=== PATIENT | female | born 1960 | race Caucasian/White ===

== ENCOUNTER → 2023-07-20 07:38 | Outpatient (REF) | payer BC, SELFPAY | LOC: RAD 07:38 | PROVIDERS: ATTENDING PHYSICIAN Obstetrics & Gynecology; FAMILY PHYSICIAN Physician Assistant Medical | DX: R10.31 Right lower quadrant pain (principal) | CPT/HCPCS: 76830; 76856 ==

== ENCOUNTER 2024-09-07 10:47 | Inpatient (IN) | payer BC, SELFPAY ==
[2024-09-07 05:46] VITALS: BP 139/83
[2024-09-07 06:05] LABS: % Basophils 0.7 % (0-2); % Eosinophils 2.9 % (0-6); % Immature Granulocytes 0.2 % (0-0.5); % Lymphocytes 31.9 % (20.5-51.1); % Monocytes 13.7 % (1.7-9.3); % Neutrophils 50.6 % (42.2-75.2); Absolute Eosinophils 0.1 10^3/uL (0-0.7); Absolute Lymphocytes 1.4 10^3/uL (1.2-3.4); Absolute Monocytes 0.6 10^3/uL (0.1-0.6); Absolute Neutrophils 2.3 10^3/uL (1.4-6.5); Hematocrit 33.8 % (37.0-47.0); Hemoglobin 11.5 g/dL (12.0-16.0); Mean Corpuscular Hgb 31.2 pg (27.0-31.0); Mean Corpuscular Volume 91.6 fL (81.0-99.0); Mean Platelet Volume 8.8 fL (7.4-10.4); Nucleated Red Blood Cells % 0 %; Platelet Count 177 10^3/uL (130-400); Red Blood Cell Count 3.69 10^6/uL (4.20-5.40); White Blood Cell Count 4.5 10^3/uL (4.8-10.8)
[2024-09-07 06:27] LABS: ALT (SGPT) 51 U/L (0-35); AST (SGOT) 41 U/L (14-36); Albumin 4.1 g/dl (3.5-5.0); Alkaline Phosphatase 47 U/L (38-126); Blood Urea Nitrogen 27 mg/dl (7-17); Calcium 8.7 mg/dl (8.4-10.2); Carbon Dioxide 19 mmol/L (22-30); Chloride 106 mmol/L (98-107); Glucose 96 mg/dl (70-99); Lipase 249 U/L (23-300); Potassium 4.2 mmol/L (3.5-5.1); Sodium 136 mmol/L (135-145); Total Bilirubin 0.5 mg/dl (0.2-1.3); Total Protein 6.9 g/dl (6.3-8.2); eGFR 18.17
--- NOTE | 2024-09-07 07:44 | ED.GENMED ---
History of Present Illness
General
Chief Complaint: Flank Pain
Source: patient
Exam Limitations: none
Time Seen by Provider: 09/07/24 07:23
History of Present Illness
History of Present Illness:
64yoF with a history of hypertension, hyperlipidemia, and remote history of breast cancer in remission presenting with her for evaluation of flank pain. Patient has been having some mild pain in her right flank over the past week. She woke
up this morning at 4 AM with severe pain. Pain is located in the right flank and radiates to the right lower quadrant. She also reports nausea but denies any vomiting. She has not urinated since 10 PM last night and does not currently feel the
urge to urinate. She was urinating well yesterday without any dysuria or hematuria. Patient is otherwise asymptomatic and denies any fevers. Patient had outpatient blood work in June 2024 and creatinine was 0.88 at that time.
Phy Exam
General Physical Exam
General Presentation: well appearing and no apparent distress
General Skin: warm and dry
General Habitus: normal
General Mental: alert
ENT Exam
ENT Exam: normocephalic
Pulmonary Exam
Pulmonary Exam: lungs clear, no respiratory distress, no rales, no crackles, no rhonchi and no wheezing
Gastrointestinal Exam
Gastrointestinal Exam: non tender, soft, non distended and no cva tenderness
Neurological Exam
Neurological Exam: alert
Afia Coma Scale
Eye Opening: Spontaneous
Verbal Response: Oriented
Motor Response: Obeys Commands
GCS Total Score: 15
Skin Exam
Skin Exam: normal color and warm/dry
Psychiatric Exam
Psychiatric Exam: normal mood/affect
Course
Orders/Labs/Results
Orders:
Orders
09/07/24 05:55
Complete Blood Count/With Diff Urgent
Comprehensive Metabolic Panel Urgent
Lipase Urgent
09/07/24 07:43
CT Abd/pel Without Iv Or Oral Urgent
Comment:
Reason For Exam: R flank pain, RLQ pain
Bladder Scan- Treatment ONCE
0.9% Sodium Chloride 1000 ml [Nss] 1,000 ml IV BOLUS
HYDROmorphone [Dilaudid] 0.5 mg IV NOW STA
09/07/24 08:03
Ondansetron Injectable [Zofran] 4 mg IV NOW STA
09/07/24 09:55
Urinalysis Reflex To Culture Urgent
Date Specimen was Collected: 09/07/24
Time Specimen was Collected: 07:44
Urine Microscopic Reflex Cult Urgent
Urine Culture Urgent
YOGI Source: U
Specimen Description:
Date Specimen was Collected: 09/07/24
Time Specimen was Collected: 07:44
09/07/24 10:05
0.9% Sodium Chloride 1000 ml [Nss] 1,000 ml IV BOLUS
09/07/24 10:31
Blood Culture Q30M
YOGI Source: Blood/Venous
Specimen Description:
09/07/24 10:35
CefTRIAXone [Rocephin] 2,000 mg IV NOW STA
09/07/24 10:37
Admit/Transfer Patient As Directed
Co-Sign Provider:
Level of Care: Inpatient admission
Assign to:: Telemetry
Physician / Group: Bridger/hospitalist
Diagnosis: MU, R flank pain
Reason for Telemetry: Other
Other Reason for Telemetry: alcohol withdrawal protocol
Date to Stop Telemetry: 09/09/24
Time to Stop Telemetry: 11:00
Reason for Hospitalization: MU, R flank pain
Expected length of stay greater than two midnights?: Yes
ELOS- Estimated Length of Stay in days: 3
I certify the patient meets the requirements for IP care: Yes
Code Status As Directed
Resuscitation Status: Full Code
09/07/24 11:12
Blood Culture Q30M
YOGI Source: Blood/Venous
Specimen Description:
09/09/24 11:00
DC Protocol for Telemetry ONCE
Abnormal Lab Results
09/07/24 09/07/24
05:55 09:55
WBC 4.5 L 10^3/uL
(4.8-10.8)
RBC 3.69 L 10^6/uL
(4.20-5.40)
Hgb 11.5 L g/dL
(12.0-16.0)
Hct 33.8 L %
(37.0-47.0)
MCH 31.2 H pg
(27.0-31.0)
Monocytes % 13.7 H %
(1.7-9.3)
Carbon Dioxide 19 L mmol/L
(22-30)
BUN 27 H mg/dl
(7-17)
Creatinine 2.8 H mg/dL
(0.6-1.0)
AST 41 H U/L
(14-36)
ALT 51 H U/L
(0-35)
Ur Occult Blood Reflex 2+ A
(Negative)
Leukocyte Esterase Rfl 3+ A
(Negative)
Urine RBC 3-6 A /HPF
(0-2)
Urine WBC (Reflex) 16-20 A /HPF
(0-5)
Urine Bacteria (Reflex) Moderate A
(Negative)
Urine Albumin (Reflex) 3+ A
(Neg - Trace)
09/07/24 05:55
09/07/24 05:55
Vital Signs
Initial and Last Documented VS:
Initial Vital Signs
Temp Pulse Resp BP Pulse Ox
98.5 F 78 18 139/83 99
09/07/24 05:46 09/07/24 05:46 09/07/24 05:46 09/07/24 05:46 09/07/24 05:46
Last Documented Vital Signs
Temp Pulse Resp BP Pulse Ox
98.5 F 77 18 132/71 96
09/07/24 05:46 09/07/24 11:17 09/07/24 11:17 09/07/24 11:17 09/07/24 11:17
MDM/Problems Addressed
Differential Diagnosis Includes:
64yoF here with R flank pain. Mild pain x 1 week, now worsening since 4am. Has not urinated since last night. No f/c. VSS. She is well-appearing in no acute distress. There is no reproducible abdominal or CVA tenderness on exam. Differential
diagnosis includes but is not limited to: Kidney stone, UTI, pyelonephritis, musculoskeletal, appendicitis
Initial ED plan: Labs obtained in triage. Creatinine 2.8. She has no history of CKD and was able to show me her recent outpatient lab work from June and creatinine was 0.88 at that time. Will check bladder scan, UA, and CT abdomen without
contrast. IV Dilaudid, Zofran, and fluid bolus for symptoms.
*Critical Care Note
Total Time (30-74mins, 75-104mins- exclusive of procedures): Not Applicable
Update Note
Update Note:
Bladder scan 100cc. CT does not show any ureterolithiasis or hydronephrosis. Appendix is normal. UA with 3+ leukocytes suggesting infection. IV Rocephin ordered as well as second fluid bolus. Patient admitted for further management.
ED Attending Note
-
Portions of this chart may have been created with voice recognition software.� Occasional wrong word or��sound alike� substitutions may have occurred due to the inherent limitations of voice recognition software.
Discharge Plan
Departure
Patient Disposition: Admit
Date of Disposition: 09/07/24
Time of Disposition: 10:06
Presentation/result/management discussed w/ accepting MD/DO: Hospitalist
Discharge Problem:
Acute kidney injury, Right flank pain
Interventions
Interventions:
*Risk Screen - Suicide Last Done: 09/07/24 05:46
*General Assessment Last Done: 09/07/24 05:46
*Neglect/Abuse Screening Last Done: 09/07/24 05:46
SP-Jzldgu-Bguhqemeru Assessment Last Done: 09/07/24 08:06
ED-Female Genitourinary Assessment Last Done: 09/07/24 08:06
[2024-09-07] MEDS: DILAUDID 0.5 MG IV (07:49)
[2024-09-07] MEDS: NSS 1000 IV ×3 (07:58→17:11)
[2024-09-07] MEDS: ZOFRAN 4 MG IV (08:05)
[2024-09-07 08:07] VITALS: BMI 28.4
[2024-09-07 10:19] LABS: Urine Albumin 3+ (Neg - Trace); Urine Bilirubin Negative (Negative); Urine Character Slightly Cloudy (Clear); Urine Color Yellow; Urine Glucose Negative (Negative); Urine Ketone Negative (Negative); Urine Leukocyte 3+ (Negative); Urine Nitrite Negative (Negative); Urine Occult Blood 2+ (Negative); Urine Urobilinogen Negative (Neg - 1+)
--- NOTE | 2024-09-07 10:20 | HPS.HSE ---
Family Physician
-
Family Physician: Roopa Anand PA-C
Chief Complaint
-
R flank pain
History of Present Illness
HPI: 64 yo F with PMH hypertension, hyperlipidemia, and remote history of breast cancer in remission; p/w R flank pain that started over the past week. Right flank radiates to the right lower quadrant.
She also reports nausea but denies to vomiting. Also denies to fever.
Patient had outpatient blood work in June 2024 and creatinine was 0.88 at that time.
Medical History
Past Medical History
Past Medical History: Reports Other
Additional Past Medical History:
hypertension,
hyperlipidemia,
remote history of breast cancer in remission
Past Surgical History: Reports Cholecystectomy
Additional Past Surgical History:
mastectomy
Social History
Tobacco: Non-smoker
Alcohol: Daily (3-4 glasses of wine )
Personal:
Living: With Family
Family History
Family History: Not pertinent
Allergies / Home Medications
Allergies reflects when Allergies were last updated in [facility].
Home Medications with original date entered in [facility]
Allergy/Medication List:
Medications on admission are unable to be verified or confirmed at this time.
Review of Systems
-
: Reports See HPI, Flank Pain (R ) and Other (decreased urine outpt ); Denies Dysuria or Frequency
Physical Exam
Vital Signs
Vital Signs
Temp Pulse Resp BP Pulse Ox
36.9 C 78 18 139/83 99
09/07/24 05:46 09/07/24 05:46 09/07/24 05:46 09/07/24 05:46 09/07/24 05:46
Physical Exam
General: Well Developed, Well Nourished, No Apparent Distress, Comfortable and Conversant
HEENT: NormoCephalic, Moist mucous membranes and Atraumatic
Respiratory: Clear and Non Labored Respirations; No Accessory Resp Muscle Use
Cardiac: S1/S2 and Regular Rhythm; No Murmur or Rub
GI: Soft, Non Tender, Non Distended and Normal Bowel Sounds; No Organomegaly
Rectal: Deferred by Provider
Musculoskeletal: No Clubbing, No Cyanosis and No Edema
Skin: No Rash
Neuro: Awake and Alert
Psych: Calm and Intact Judgment/Insight
Laboratory Results
-
09/07/24 05:55
09/07/24 05:55
Laboratory Results
Total Bilirubin 0.5 mg/dl (0.2-1.3) 09/07/24 05:55
AST 41 U/L (14-36) H 09/07/24 05:55
ALT 51 U/L (0-35) H 09/07/24 05:55
Alkaline Phosphatase 47 U/L (38-126) 09/07/24 05:55
Lipase 249 U/L (23-300) 09/07/24 05:55
Data Reviewed
-
CT Scan: Report Reviewed by me
Lab Data: Labs Reviewed by me
Impression/Plan
-
HPI: 64 yo F with PMH hypertension, hyperlipidemia, and remote history of breast cancer in remission; p/w R flank pain that started over the past week. Right flank radiates to the right lower quadrant.
She also reports nausea but denies to vomiting. Also denies to fever.
Patient had outpatient blood work in June 2024 and creatinine was 0.88 at that time.
A/P:
# R flank pain, ?R renal colic with ?passed stone
#?R pyelo
Check urine Cx, blood Cx
CT AP: There is perinephric stranding of both kidneys, which is nonspecific. Subtle bilateral nephroliths, No evidence for ureteral calculus bilaterally.
cover with empiric Abx ceftriaxone for now until culture results are available
# MU
SCr 2.8 from baseline 0.8
s/p 2L NSS bolus in ED, cont IVF support
Monitor SCr
# Mild transaminitis, suspect reactive
trend LFT
# hypertension
Hold [employer] losartan
Med recc pending
# hyperlipidemia
# Daily alcohol drinking, 3-4 glasses of wine
cover with MSAS for withdrawal
# remote history of breast cancer in remission
DVT ppx: HSQ
FC
[2024-09-07 10:35] LABS: Urine Squamous Cell >30 /LPF (Few)
[2024-09-07 10:36] VITALS: BP 132/72
[2024-09-07 10:36] LABS: Urine Bacteria Moderate (Negative); Urine White Cell 16-20 /HPF (0-5)
[2024-09-07 11:00] VITALS: BP 132/71
[2024-09-07] MEDS: ROCEPHIN 2000 MG IV (11:14)
[2024-09-07 11:17] VITALS: BP 132/71
--- NOTE | 2024-09-07 13:22 | CM ---
Met with patient admitted from home with MU, flank pain. She was driving, working prior to admit. Lives with spouse in 2 level home with 1 step in. 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 Up 13 steps to full bath and bedrooms. No DME, SNF. Remote VNA after
breast cancer surgery. No financial concerns.
PCP Roopa Anand PA-C
Rx: [facility].
PLAN: home no needs.
[2024-09-07 20:25] VITALS: BP 153/96
--- NOTE | 2024-09-07 20:25 | PTCARENOTE ---
Rec'd to 4E alert & oriented x3. Able to walk from stretcher to bed w/o any difficulty. States minimal Lt lower back pain at this time.
[2024-09-07 20:30] VITALS: BMI 28.6
[2024-09-07 23:00] VITALS: BP 153/78
[2024-09-07] MEDS: DILAUDID 0.25 MG IV (23:00)
[2024-09-07] MEDS: FLUSH (NSS) 2 FLUSH IV (23:01)
[2024-09-07] MEDS: HEPARIN 5000 UNITS SC (23:36)
[2024-09-07] MEDS: THIAMINE INJECTION 200 MG IV (23:38)
[2024-09-07] MEDS: ATARAX 10 MG PO (23:40)
[2024-09-08 03:00] VITALS: BP 107/59
[2024-09-08 07:50] VITALS: BP 134/83
[2024-09-08 08:24] LABS: Hematocrit 30.9 % (37.0-47.0); Hemoglobin 10.5 g/dL (12.0-16.0); Mean Corpuscular Hgb 31.3 pg (27.0-31.0); Mean Corpuscular Volume 92.2 fL (81.0-99.0); Mean Platelet Volume 9.2 fL (7.4-10.4); Platelet Count 150 10^3/uL (130-400); Red Blood Cell Count 3.35 10^6/uL (4.20-5.40); Red Cell Dist. Width 13.1 % (11.5-14.5)
[2024-09-08 08:44] LABS: ALT (SGPT) 30 U/L (0-35); AST (SGOT) 26 U/L (14-36); Albumin 3.5 g/dl (3.5-5.0); Alkaline Phosphatase 57 U/L (38-126); Blood Urea Nitrogen 30 mg/dl (7-17); Calcium 7.9 mg/dl (8.4-10.2); Carbon Dioxide 17 mmol/L (22-30); Chloride 113 mmol/L (98-107); Direct Bilirubin 0.2 mg/dl (0.0-0.4); Estimated Creatinine Clearance 18 ml/min; Glucose 94 mg/dl (70-99); Magnesium 1.1 mg/dl (1.6-2.3); Potassium 4.7 mmol/L (3.5-5.1); Sodium 139 mmol/L (135-145); Total Bilirubin 0.6 mg/dl (0.2-1.3); eGFR 13.01
[2024-09-08] MEDS: NSS 1000 IV (09:19)
[2024-09-08] MEDS: PROTONIX 40 MG PO (09:22)
[2024-09-08] MEDS: CRESTOR 5 MG PO (09:22)
[2024-09-08] MEDS: HEPARIN 5000 UNITS SC ×2 (09:22→21:54)
[2024-09-08] MEDS: THIAMINE INJECTION 200 MG IV ×2 (09:23→21:56)
[2024-09-08] MEDS: FLUSH (NSS) 1 FLUSH IV ×2 (09:27→12:46)
[2024-09-08] MEDS: STERILE WATER FOR INJECTION 10 ML IV (09:27)
[2024-09-08] MEDS: ROCEPHIN 1000 MG IV (09:27)
[2024-09-08 11:35] VITALS: BP 147/91
--- NOTE | 2024-09-08 11:43 | W.PN.HOSP.TC ---
Today's Communication/Plan
-
see A/P
Assessment / Plan
Assessment / Plan
HPI: 64 yo F with PMH hypertension, hyperlipidemia, and remote history of breast cancer in remission; p/w R flank pain that started over the past week. Right flank radiates to the right lower quadrant.
She also reports nausea but denies to vomiting. Also denies to fever.
Patient had outpatient blood work in June 2024 and creatinine was 0.88 at that time.
A/P:
# R flank pain, ?R renal colic with ?passed stone, R flank pain has improved
Admission CT AP: There is perinephric stranding of both kidneys, which is nonspecific. Subtle bilateral nephroliths, No evidence for ureteral calculus bilaterally.
urine Cx grew Mixed wayne present, Probable contamination
Follow blood Cx, so far negative
Cont empiric Abx ceftriaxone for now
# MU
SCr 2.8 on admission, today at 3.7; baseline SCr 0.8
s/p 2L NSS bolus in ED, cont IVF support
Monitor SCr,
check FENA, urine eosinophil
Monitor I/O
Renal CS
# Mild transaminitis, reactive and resolved
# hypertension
Hold LICENSED [employer]ISER losartan
Cover with IV hydralazine PRN
# hyperlipidemia
# Daily alcohol drinking, 3-4 glasses of wine
cover with MSAS for withdrawal
# remote history of breast cancer in remission
# Hypomagnesemia
Mag level 1.1 today, replete IV
DVT ppx: HSQ
FC
DW RN
DW at bedside
Anticipated Discharge: 24 - 48 hours
Subjective/Interval History
-
Date of Service: September 08, 2024
Objective Data
-
Labs:
Laboratory Results
09/08/24
07:46
WBC 3.0 L
Hgb 10.5 L
Hct 30.9 L
Plt Count 150
Sodium 139
Potassium 4.7
Chloride 113 H
Carbon Dioxide 17 L
BUN 30 H
Creatinine 3.7 H
Glucose 94
Calcium 7.9 L
Total Bilirubin 0.6
AST 26
ALT 30
Alkaline Phosphatase 57
Vital Signs:
Vital Signs
Temp Pulse Resp BP Pulse Ox
37.2 C 77 16 134/83 96
09/08/24 07:50 09/08/24 07:50 09/08/24 07:50 09/08/24 07:50 09/08/24 09:18
Review of Systems
-
All other systems: Reviewed and negative
Constitutional: Reports No Symptoms
Genitourinary: Reports Flank Pain (R flank pain improved ); Denies Dysuria, Frequency, Incontinence, Difficulty Voiding or Urgency
Physical Exam
-
General: Well Developed, Well Nourished, No Apparent Distress, Comfortable and Conversant; Negative Respiratory Distress
HEENT: Normocephalic, Atraumatic, Nose Appears Normal and Ears Appear Normal; Negative Oxygen
Respiratory: Clear to Auscultation and Non Labored Respirations; Negative Accessory Resp Muscle Use
Cardiac: Regular Rhythm and S1/S2
GI: Soft, Nontender, Nondistended and Normal Bowel Sounds
Musculoskeletal: Negative Edema, Right Lower Extrem or Edema, Left Lower Extrem
Skin: Warm and Dry
Neuro: Awake, Alert, Oriented, AO x 3 and Nonfocal/Grossly Intact
Psych: Calm and Intact Judgement/Insight
Data Reviewed
-
CT Scan: Report Reviewed by me
Labs: Labs Reviewed by me, Discussed with Patient and Discussed with Family
--- NOTE | 2024-09-08 12:34 | W.CON.NEPH ---
Consultation
-
Date/Time Consultation Requested: 09/08/2024 11:00 AM
Date/Time Consultation Performed: 09/08/2024 12:30 PM
Requesting Provider: Dr. Sparks
Performing Provider: Dr. Fragoso
Reason for Consultation: Acute kidney injury
Medical History
-
Chief Complaint: Acute kidney injury
History of Present Illness:
The patient is a 64-year-old female with a past medical history of dyslipidemia maintained on Zetia and Crestor, hypertension maintained on losartan, myrbetriq for chronic interstitial cystitis, and PPI for GERD. She has a history of breast cancer
but has remained in remission. She presented with right flank pain that started over the past week and radiates to the right lower quadrant she had reported some associated nausea but no vomiting and denied fevers. On presentation to the hospital
she was in acute renal failure with a creatinine off her baseline of 0.88 in June 2024 up to 3.7 and were consulted for MU. CAT scan imaging on admission did not reveal hydronephrosis but did note bilateral perinephric stranding.
Past Medical History
Hypertension,
Hyperlipidemia,
remote history of breast cancer in remission
GERD
Mastectomy Bilateral
Chronic interstitial cystitis
Cholecystectomy
Social History
Tobacco: Non-Smoker
Alcohol: Daily
Personal:
Family History
no ckd
Allergies / Home Medications
Allergy/AdvReac Type Severity Reaction Status Date / Time
docetaxel [From Taxotere] Allergy Anaphylaxis Verified 09/07/24 05:46
�Medication �Instructions �Recorded �Confirmed �Type
azelastine 137 mcg (0.1 %) nasal 1 spray intranasal DAILY Allergies 09/07/24 09/07/24 History
spray
cetirizine 10 mg tablet (Zyrtec) 10 mg PO DAILY Allergies 09/07/24 09/07/24 History
ezetimibe 10 mg tablet (Zetia) 10 mg PO DAILY High Cholesterol 09/07/24 09/07/24 History
hydroxyzine HCl 10 mg tablet 10 mg PO HS Allergies 09/07/24 09/07/24 History
losartan 100 mg tablet 100 mg PO DAILY Blood Pressure 09/07/24 09/07/24 History
mirabegron 50 mg tablet,extended 50 mg PO DAILY Urinary Issue 09/07/24 09/07/24 History
release 24 hr
mirabegron 50 mg tablet,extended 50 mg PO DAILY Urinary Issue 09/07/24 09/07/24 History
release 24 hr (Myrbetriq)
omeprazole 20 mg capsule,delayed 20 mg PO DAILY Gastrointestinal 09/07/24 09/07/24 History
release Issue
rosuvastatin 40 mg tablet 40 mg PO DAILY High Cholesterol 09/07/24 09/07/24 History
sumatriptan succinate 100 mg tablet 100 mg PO BID Neurological 09/07/24 09/07/24 History
Condition
Review of Systems
-
: Flank Pain (Right flank pain radiation to groin, decreased urine output on presentation to emergency room last evening (now improved))
Physical Exam
Vital Signs
Vital Signs
Temp Pulse Resp BP Pulse Ox
97.8 F 77 16 147/91 96
09/08/24 11:35 09/08/24 11:35 09/08/24 11:35 09/08/24 11:35 09/08/24 11:35
Lab Results
09/08/24 07:46
09/08/24 07:46
WBC 3.0 10^3/uL (4.8-10.8) L 09/08/24 07:46
RBC 3.35 10^6/uL (4.20-5.40) L 09/08/24 07:46
Hgb 10.5 g/dL (12.0-16.0) L 09/08/24 07:46
Hct 30.9 % (37.0-47.0) L 09/08/24 07:46
Plt Count 150 10^3/uL (130-400) 09/08/24 07:46
Sodium 139 mmol/L (135-145) 09/08/24 07:46
Potassium 4.7 mmol/L (3.5-5.1) 09/08/24 07:46
Chloride 113 mmol/L (98-107) H 09/08/24 07:46
Carbon Dioxide 17 mmol/L (22-30) L 09/08/24 07:46
BUN 30 mg/dl (7-17) H 09/08/24 07:46
Creatinine 3.7 mg/dL (0.6-1.0) H 09/08/24 07:46
eGFR 13.01 09/08/24 07:46
Glucose 94 mg/dl (70-99) 09/08/24 07:46
Calcium 7.9 mg/dl (8.4-10.2) L 09/08/24 07:46
Albumin 3.5 g/dl (3.5-5.0) 09/08/24 07:46
Physical Exam
General: AOx3, Nontoxic , NAD
HEENT: PERRL, EOMI, Anicteric, Conjunctivae Clear, Ear/Nose Intact, Hearing Normal, Oropharynx Clear/Moist, Dentition Intact, Facial Symmetry, Neck Supple, Neck: Trachea Midline, No JVD and No Thyromegaly, no Bruits
Respiratory: Clear to auscultation bilaterally with normal lung exersion
Cardiac: S1/S2 and Regular Rate/Rhythm
Breast: Deferred by me
Abdomen: Soft, Nontender, Nondistended, Normal Bowel Sounds and No Hepatosplenomegaly
Rectal: Deferred by Provider
Genito-urinary: Right lower back tenderness with percussion
Extremities: No Clubbing, No Cyanosis and No Edema
Skin: No Rash or open lesions
Neuro: Nonfocal/Grossly Intact, CN II-XII (Intact) and Strength (Musculoskeletal exam 5 out of 5 both upper and lower extremities)
Hematologic/Lymphatic: No Cervical Lymphadenopathy, No Submandibular Lymphadenopathy and No Supraclavicular Lymphadenopathy
Psych: Mood/afflect pleasant, Insight/judgement good and Appropriate
Vascular: plus 2 pedal and radial pulses
Data Reviewed
-
CT Scan: Report Reviewed by me (No evidence of hydronephrosis but notable for nonspecific perinephric stranding of kidneys)
Labs: Labs Reviewed by me (BMP CBC urinalysis)
Old Records: Reviewed (Reviewed outpatient lab work creatinine 0.88 from June 2024)
Assessment/Plan
-
Impression:
MU (2 plus blood and 3 plus albuminuria)
Metabolic acidosis (non gapped)
Right Flank pain
History of breast cancer
Hypertension
Hyperlipidemia
Anemia
History of chronic interstitial cystitis (that manifests as right flank pain)
Plan:
MU:
-holding ARB (hemodynamically stable)
- CT scan noted bilateral perinephric stranding but no evidence of obstructive uropathy
- maintain IVFs for now
- Empirically covered with antibiotics for possible underlying UTI and/or pyelonpephritis although there is now leukocytosis or fevers documented
- Check urine protein to creatinine ratio and serological workup given persistent proteinuria and hematuria
- There exist the possibility that she passed a stone but I am unsure why the creatinine elevated or worsenend today if that was the etiology of her acute kidney injury
- She is now urinating well please collect accurate I's and O's
[2024-09-08] MEDS: MAGNESIUM SULFATE 100 IV (12:44)
[2024-09-08 14:49] LABS: Creatine Phosphokinase 72 U/L (30-135)
[2024-09-08 15:10] LABS: Body Fluid for Eosinophils No Eosinophils seen
[2024-09-08 15:26] LABS: Urine Sodium 54 mmol/L (30-90)
[2024-09-08 15:39] LABS: Complement C3 99 mg/dl (88-165)
[2024-09-08 15:50] VITALS: BP 128/83
[2024-09-08 16:04] LABS: Hepatitis C Antibody Negative (Negative)
--- NOTE | 2024-09-08 17:14 | PTCARENOTE ---
Pt AAO x3, DELAROSA well, OOB in room/to BR; fifi well. VSS. On room air- pulse ox 95%, no SOB noted. Abd soft, fifi PO well. Voiding clear yellow urine in specipan- instructed to monitor urine output- pt compliant. IV NSS @ 60 ml/hr infusing via
Lt hand site without sx of infiltration. Resting in bed at present, no c/o. Will continue to monitor.
[2024-09-08] MEDS: ATARAX 10 MG PO (21:57)
[2024-09-08 23:55] VITALS: BP 145/84
[2024-09-09] MEDS: NSS 1000 IV ×2 (03:58→20:54)
[2024-09-09 07:47] LABS: Hematocrit 32.3 % (37.0-47.0); Mean Corp Hgb Conc. 34.1 g/dL (33.0-37.0); Mean Corpuscular Hgb 31.3 pg (27.0-31.0); Mean Platelet Volume 9.3 fL (7.4-10.4); Platelet Count 160 10^3/uL (130-400); Red Blood Cell Count 3.51 10^6/uL (4.20-5.40); Red Cell Dist. Width 13.1 % (11.5-14.5); White Blood Cell Count 2.8 10^3/uL (4.8-10.8)
[2024-09-09 07:54] LABS: Blood Urea Nitrogen 26 mg/dl (7-17); Calcium 8.8 mg/dl (8.4-10.2); Carbon Dioxide 18 mmol/L (22-30); Chloride 119 mmol/L (98-107); Estimated Creatinine Clearance 30 ml/min; Glucose 95 mg/dl (70-99); Magnesium 2.1 mg/dl (1.6-2.3); Potassium 4.8 mmol/L (3.5-5.1); Sodium 141 mmol/L (135-145); eGFR 23.01
[2024-09-09 08:31] VITALS: BP 169/78
[2024-09-09 08:51] LABS: Anti Streptolysin Negative (Negative)
[2024-09-09 09:13] LABS: Protein/creatinine Ratio 0.2; Urine Protein 14 mg/dl
[2024-09-09] MEDS: PROTONIX 40 MG PO (09:25)
[2024-09-09] MEDS: CRESTOR 5 MG PO (09:26)
[2024-09-09] MEDS: HEPARIN 5000 UNITS SC ×2 (09:26→20:46)
[2024-09-09] MEDS: THIAMINE INJECTION 200 MG IV ×2 (09:26→20:46)
[2024-09-09] MEDS: ROCEPHIN 1000 MG IV (09:26)
[2024-09-09] MEDS: STERILE WATER FOR INJECTION 10 ML IV (09:27)
[2024-09-09] MEDS: TYLENOL 650 MG PO (09:49)
--- NOTE | 2024-09-09 11:50 | W.PN.HOSP.TC ---
Today's Communication/Plan
-
see A/P
Assessment / Plan
Assessment / Plan
HPI: 64 yo F with PMH hypertension, hyperlipidemia, and remote history of breast cancer in remission; p/w R flank pain that started over the past week. Right flank radiates to the right lower quadrant.
She also reports nausea but denies to vomiting. Also denies to fever.
Patient had outpatient blood work in June 2024 and creatinine was 0.88 at that time.
A/P:
# R flank pain, ?R renal colic with ?passed stone, R flank pain has resolved
Admission CT AP: There is perinephric stranding of both kidneys, which is nonspecific. Subtle bilateral nephroliths, No evidence for ureteral calculus bilaterally.
urine Cx grew Mixed wayne present, probable contamination
blood Cx negative
Cont empiric Abx ceftriaxone x3 days
# MU
SCr 2.8 on admission, peaked at 3.7, trended down to 2.3 today; baseline SCr 0.8
s/p 2L NSS bolus in ED, cont IVF support
Monitor SCr,
FENA 1.47%
urine eosinophil negative
Monitor I/O
Check ANCA, FAVIOLA, complement per renal
Renal on board
# Mild transaminitis, reactive and resolved
# hypertension
Hold [employer] losartan
Cover with IV hydralazine PRN
# hyperlipidemia
# Daily alcohol drinking, 3-4 glasses of wine
cover with MSAS for withdrawal
# remote history of breast cancer in remission
# Hypomagnesemia
repleted and resolved
DVT ppx: HSQ
FC
DW at bedside
Anticipated Discharge: Within 24 hours
Subjective/Interval History
-
Date of Service: September 09, 2024
Objective Data
-
Labs:
Laboratory Results
09/09/24
06:59
WBC 2.8 L
Hgb 11.0 L
Hct 32.3 L
Plt Count 160
Sodium 141
Potassium 4.8
Chloride 119 H
Carbon Dioxide 18 L
BUN 26 H
Creatinine 2.3 H
Glucose 95
Calcium 8.8
Vital Signs:
Vital Signs
Temp Pulse Resp BP Pulse Ox
36.7 C 77 18 169/78 98
09/09/24 08:31 09/09/24 08:31 09/09/24 08:31 09/09/24 08:31 09/09/24 08:31
I&O
09/08/24 09/09/24 09/10/24
06:59 06:59 06:59
Intake Total 1960 / 1960 480 / 480
Output Total 900 / 900 1100 / 1100
Balance 1060 / 1060 -620 / -620
Review of Systems
-
All other systems: Reviewed and negative
Constitutional: Reports No Symptoms
Genitourinary: Denies Dysuria, Frequency, Flank Pain (resolved), Incontinence, Difficulty Voiding or Urgency
Physical Exam
-
General: Well Developed, Well Nourished, No Apparent Distress, Comfortable and Conversant; Negative Respiratory Distress
HEENT: Normocephalic, Atraumatic, Nose Appears Normal and Ears Appear Normal; Negative Oxygen
Respiratory: Clear to Auscultation and Non Labored Respirations; Negative Accessory Resp Muscle Use
Cardiac: Regular Rhythm and S1/S2
GI: Soft, Nontender, Nondistended and Normal Bowel Sounds
Musculoskeletal: Negative Edema, Right Lower Extrem or Edema, Left Lower Extrem
Skin: Warm and Dry
Neuro: Awake, Alert, Oriented, AO x 3 and Nonfocal/Grossly Intact
Psych: Calm and Intact Judgement/Insight
Data Reviewed
-
CT Scan: Report Reviewed by me
Labs: Labs Reviewed by me, Discussed with Patient and Discussed with Family
[2024-09-09 11:54] VITALS: BP 146/88
--- NOTE | 2024-09-09 13:25 | CM ---
Chart reviewed. Care ongoing.
Home no needs when stable
--- NOTE | 2024-09-09 14:53 | W.PN.NEPH.PH ---
Today's Communication / Plan
-
Follow-up BMP
Assessment/Plan
-
Impression:
MU (2 plus blood and 3 plus albuminuria)
Metabolic acidosis (non gapped)
Right Flank pain
History of breast cancer
Hypertension
Hyperlipidemia
Anemia
History of chronic interstitial cystitis (that manifests as right flank pain)
Plan:
MU:
-holding ARB (hemodynamically stable)
- CT scan noted bilateral perinephric stranding but no evidence of obstructive uropathy
-Creatinine down to 2.3 and grossly nonoliguric
- Empirically covered with antibiotics for possible underlying UTI and/or pyelonpephritis although there is now leukocytosis or fevers documented
-Blood and urine cultures negative
- Checked urine protein to creatinine ratio and serological workup given persistent proteinuria and hematuria 200mg
- There exist the possibility that she passed a stone but I am unsure why the creatinine elevated or worsened
-Serologies are pending but I do not think they are going to be revealing given improvement of kidney function
- She is now urinating well please collect accurate I's and O's
- Patient can be discharged in the a.m. if creatinine continues to improve
-
-
Date of Service: September 09, 2024
CC / HPI / ROS
-
Chief Complaint:
Acute kidney injury
History of Present Illness:
Hemodynamically stable off ARB
Creatinine down to 2.3
Review of Systems:
Some mild residual right flank pain
Nonoliguric
No chest pain or shortness of breath or fever
Labs
-
Labs:
WBC 2.8 10^3/uL (4.8-10.8) L 09/09/24 06:59
RBC 3.51 10^6/uL (4.20-5.40) L 09/09/24 06:59
Hgb 11.0 g/dL (12.0-16.0) L 09/09/24 06:59
Hct 32.3 % (37.0-47.0) L 09/09/24 06:59
Plt Count 160 10^3/uL (130-400) 09/09/24 06:59
Sodium 141 mmol/L (135-145) 09/09/24 06:59
Potassium 4.8 mmol/L (3.5-5.1) 09/09/24 06:59
Chloride 119 mmol/L (98-107) H 09/09/24 06:59
Carbon Dioxide 18 mmol/L (22-30) L 09/09/24 06:59
BUN 26 mg/dl (7-17) H 09/09/24 06:59
Creatinine 2.3 mg/dL (0.6-1.0) H 09/09/24 06:59
eGFR 23.01 09/09/24 06:59
Glucose 95 mg/dl (70-99) 09/09/24 06:59
Calcium 8.8 mg/dl (8.4-10.2) 09/09/24 06:59
Albumin 3.5 g/dl (3.5-5.0) 09/08/24 07:46
Physical Exam
-
Vital Signs:
Vital Signs
Temp Pulse Resp BP Pulse Ox
98.4 F 73 18 146/88 96
09/09/24 11:54 09/09/24 11:54 09/09/24 11:54 09/09/24 11:54 09/09/24 11:54
Cardiovascular:: Regular rate and rhythm
Respiratory:: Bilateral: CTA
Lung Excursion:: Normal
Abdomen:: Nontender and Soft
Bowel Sounds:: Normal
Extremity Edema:: None: Bilateral:
Dupree Catheter: No
--- NOTE | 2024-09-09 14:59 | PTCARENOTE ---
Assumed care of pt from previous nurse. pt with a mild headache, TT Dr. Sparks, tylenol ordered and provided with positive results. Pt call ramirez is within reach, pt rings zbigniew. will cont to monitor.
[2024-09-09 15:33] VITALS: BP 121/76
[2024-09-09] MEDS: ATARAX 10 MG PO (21:05)
[2024-09-09 23:55] VITALS: BP 128/81
[2024-09-10 07:18] LABS: Hematocrit 28.5 % (37.0-47.0); Hemoglobin 9.7 g/dL (12.0-16.0); Mean Corpuscular Hgb 31.4 pg (27.0-31.0); Mean Corpuscular Volume 92.2 fL (81.0-99.0); Mean Platelet Volume 9.4 fL (7.4-10.4); Platelet Count 152 10^3/uL (130-400); Red Blood Cell Count 3.09 10^6/uL (4.20-5.40); Red Cell Dist. Width 13.1 % (11.5-14.5); White Blood Cell Count 2.9 10^3/uL (4.8-10.8)
[2024-09-10 07:28] LABS: Blood Urea Nitrogen 18 mg/dl (7-17); Calcium 8.4 mg/dl (8.4-10.2); Carbon Dioxide 18 mmol/L (22-30); Chloride 117 mmol/L (98-107); Estimated Creatinine Clearance 53 ml/min; Glucose 97 mg/dl (70-99); Magnesium 1.5 mg/dl (1.6-2.3); Potassium 4.7 mmol/L (3.5-5.1); Sodium 141 mmol/L (135-145); eGFR 45.63
[2024-09-10 07:35] VITALS: BP 154/83
[2024-09-10] MEDS: CRESTOR 5 MG PO (08:00)
[2024-09-10] MEDS: MAGNESIUM SULFATE 50 IV (08:00)
[2024-09-10] MEDS: HEPARIN 5000 UNITS SC (08:01)
[2024-09-10] MEDS: PROTONIX 40 MG PO (08:01)
[2024-09-10] MEDS: THIAMINE INJECTION 200 MG IV (08:02)
[2024-09-10] MEDS: TYLENOL 650 MG PO (08:04)
--- NOTE | 2024-09-10 09:15 | W.PN.HOSP.TC ---
Addendum entered and electronically signed by Prisca Sparks MD 09/10/24 14:38:
total DC time 40 min
Original Note:
Today's Communication/Plan
-
see A/P
Likely DC if cleared by renal
Assessment / Plan
Assessment / Plan
HPI: 64 yo F with PMH hypertension, hyperlipidemia, and remote history of breast cancer in remission; p/w R flank pain that started over the past week. Right flank radiates to the right lower quadrant.
She also reports nausea but denies to vomiting. Also denies to fever.
Patient had outpatient blood work in June 2024 and creatinine was 0.88 at that time.
A/P:
# R flank pain, ?R renal colic with ?passed stone, R flank pain has resolved
Admission CT AP: There is perinephric stranding of both kidneys, which is nonspecific. Subtle bilateral nephroliths, No evidence for ureteral calculus bilaterally.
urine Cx grew Mixed wayne present, probable contamination
blood Cx negative
Cont empiric Abx ceftriaxone x3 days
# MU
SCr 2.8 on admission, peaked at 3.7, trended down to 1.3 today; baseline SCr 0.8
s/p 2L NSS bolus in ED, cont IVF support
Monitor SCr,
FENA 1.47%
urine eosinophil negative
Monitor I/O
Follow ANCA, FAVIOLA results outpt with renal
complement WNL
Renal on board
# Mild transaminitis, reactive and resolved
# hypertension
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
Cover with IV hydralazine PRN, can DC with PO hydralazine 10 mg BID until further directed by renal
# hyperlipidemia
# Daily alcohol drinking, 3-4 glasses of wine
cover with MSAS for withdrawal
# remote history of breast cancer in remission
# Hypomagnesemia
replete
DVT ppx: HSQ
FC
Anticipated Discharge: Today
Subjective/Interval History
-
Date of Service: September 10, 2024
Objective Data
-
Labs:
Laboratory Results
09/10/24
06:33
WBC 2.9 L
Hgb 9.7 L
Hct 28.5 L
Plt Count 152
Sodium 141
Potassium 4.7
Chloride 117 H
Carbon Dioxide 18 L
BUN 18 H
Creatinine 1.3 H
Glucose 97
Calcium 8.4
Vital Signs:
Vital Signs
Temp Pulse Resp BP Pulse Ox
36.9 C 66 16 154/83 95
09/10/24 07:35 09/10/24 07:35 09/10/24 07:35 09/10/24 07:35 09/10/24 07:35
I&O
09/09/24 09/10/24 09/11/24
06:59 06:59 06:59
Intake Total 1960 / 1959 1440 / 1440
Output Total 900 / 900 1924 / 1924
Balance 1060 / 1060 -485 / -485
Review of Systems
-
All other systems: Reviewed and negative
Constitutional: Reports No Symptoms
Genitourinary: Denies Dysuria, Frequency, Flank Pain (resolved), Incontinence, Difficulty Voiding or Urgency
Physical Exam
-
General: Well Developed, Well Nourished, No Apparent Distress, Comfortable and Conversant; Negative Respiratory Distress
HEENT: Normocephalic, Atraumatic, Nose Appears Normal and Ears Appear Normal; Negative Oxygen
Respiratory: Clear to Auscultation and Non Labored Respirations; Negative Accessory Resp Muscle Use
Cardiac: Regular Rhythm and S1/S2
GI: Soft, Nontender, Nondistended and Normal Bowel Sounds
Musculoskeletal: Negative Edema, Right Lower Extrem or Edema, Left Lower Extrem
Skin: Warm and Dry
Neuro: Awake, Alert, Oriented, AO x 3 and Nonfocal/Grossly Intact
Psych: Calm and Intact Judgement/Insight
Data Reviewed
-
CT Scan: Report Reviewed by me
Labs: Labs Reviewed by me, Discussed with Patient and Discussed with Family
[2024-09-10] MEDS: NSS IV (10:45)
--- NOTE | 2024-09-10 11:53 | W.PN.NEPH.PH ---
Today's Communication / Plan
-
dc
Assessment/Plan
-
Impression:
MU (2 plus blood and 3 plus albuminuria)
Metabolic acidosis (non gapped)
Right Flank pain
History of breast cancer
Hypertension
Hyperlipidemia
Anemia
History of chronic interstitial cystitis (that manifests as right flank pain)
Plan:
can restart ARB on dc
f/u PCP in September
for repeat labs in September ~2weeks with PCP
can fu with [facility] Estrella in 1-2 months
-
-
Date of Service: September 10, 2024
CC / HPI / ROS
-
Chief Complaint:
Acute kidney injury
History of Present Illness:
Hemodynamically stable off ARB
Creatinine down to 1.3
no fever
Review of Systems:
no CP/SOB
Labs
-
Labs:
WBC 2.9 10^3/uL (4.8-10.8) L 09/10/24 06:33
RBC 3.09 10^6/uL (4.20-5.40) L 09/10/24 06:33
Hgb 9.7 g/dL (12.0-16.0) L 09/10/24 06:33
Hct 28.5 % (37.0-47.0) L 09/10/24 06:33
Plt Count 152 10^3/uL (130-400) 09/10/24 06:33
Sodium 141 mmol/L (135-145) 09/10/24 06:33
Potassium 4.7 mmol/L (3.5-5.1) 09/10/24 06:33
Chloride 117 mmol/L (98-107) H 09/10/24 06:33
Carbon Dioxide 18 mmol/L (22-30) L 09/10/24 06:33
BUN 18 mg/dl (7-17) H 09/10/24 06:33
Creatinine 1.3 mg/dL (0.6-1.0) H 09/10/24 06:33
eGFR 45.63 09/10/24 06:33
Glucose 97 mg/dl (70-99) 09/10/24 06:33
Calcium 8.4 mg/dl (8.4-10.2) 09/10/24 06:33
Albumin 3.5 g/dl (3.5-5.0) 09/08/24 07:46
Physical Exam
-
Vital Signs:
Vital Signs
Temp Pulse Resp BP Pulse Ox
98.4 F 66 16 154/83 95
09/10/24 07:35 09/10/24 07:35 09/10/24 07:35 09/10/24 07:35 09/10/24 07:35
Cardiovascular:: Regular rate and rhythm
Respiratory:: Bilateral: CTA
Lung Excursion:: Normal
Abdomen:: Nontender and Soft
Bowel Sounds:: Normal
Extremity Edema:: None: Bilateral:
[2024-09-10] MEDS: STERILE WATER FOR INJECTION IV (12:39)
[2024-09-10] MEDS: ROCEPHIN IV (12:39)
[2024-09-10 13:30] VITALS: BP 138/84
--- NOTE | 2024-09-10 14:20 | W.DCSUMMARY ---
Discharge Summary
Discharge Data
Date of Admission: 09/07/24
Date of Discharge: 09/10/24
-
Pending Results: No
Hospital Course
Principal Diagnosis:
R flank pain, ?R renal colic with ?passed stone; R flank pain has resolved.
Acute kidney injury (MU)
Chronic Diagnoses:�
Essential hypertension
Hyperlipidemia
Daily alcohol drinking, 3-4 glasses of wine
Remote history of breast cancer in remission
Consultations:�
Nephrology
Procedures:�
None
Clinical course:�
This is a 64 year old female with past medical history as stated above, who presented with right flank pain that radiated to the right lower quadrant.
Problem 1:
R flank pain, ?R renal colic with ?passed stone; R flank pain has resolved.
Her admission CT AP showed nonspecific bilateral perinephric stranding, subtle bilateral nephroliths, no evidence for ureteral calculus bilaterally.
Her urine culture grew mixed wayne, probable contamination.
She did receive empiric antibiotic with ceftriaxone for 3 days while in the hospital.
Problem 2:
MU.
Her SCr was at 2.8 on admission, peaked at 3.7, and trended down to 1.3 following IV fluid. Her baseline serum creatinine was at 0.8.
Her FENA was noted to be at 1.47%. Urine eosinophil was negative.
ANCA and FAVIOLA were sent, and the results can be follow-up outpatient.
She has been informed to follow-up with a court clerk outpatient.
Due to MU, her prior to admission losartan was discontinued, and it was replaced by hydralazine 10 mg twice daily.
As for the rest of her medical problems, they were stable during her hospital stay.
Discharge Plan
-
Patient Disposition: Home (Routine Discharge)
Discharge Diagnosis/Procedures: Acute kidney injury (unclear etiology, creatinine peaked to 3.7, trended down to 1.3 on discharge; baseline at 0.8);
Hypomagnesemia
Condition: Good
Diet: As tolerated, Low Fat, Low Cholesterol and Low Sodium
Activity: As tolerated
Driving Restrictions: As prior to admission
Blood Work: BMP and Magnesium level in 1 week, result to PCP
Activity Restrictions/Additional Instructions:
Follow ANCA, FAVIOLA results with renal
Referrals:
Chang Fragoso V., [Active] - in one to two weeks
Roopa Anand PA-C [Family Provider] - in less than 1 week
Additional Discharge Medication Instructions: Stop losartan
Take hydralazine 10 mg twice daily for BP control (until further directed by your kidney doctor)
Prescriptions:
New
hydralazine 10 mg tablet
10 mg PO BID Qty: 60 0RF
Continued
cetirizine [Zyrtec] 10 mg Tablet
10 mg PO DAILY
sumatriptan succinate 100 mg Tablet
100 mg PO BID
omeprazole 20 mg Capsule,Delayed Release(Dr/Ec)
20 mg PO DAILY
azelastine 137 mcg (0.1 %) [place],Non-Aerosol
1 spray INTRANASAL DAILY
hydroxyzine HCl 10 mg Tablet
10 mg PO HS
ezetimibe [Zetia] 10 mg Tablet
10 mg PO DAILY
rosuvastatin 40 mg Tablet
40 mg PO DAILY
mirabegron 50 mg Tablet Extended Release 24 Hr
50 mg PO DAILY
mirabegron [Myrbetriq] 50 mg Tablet Extended Release 24 Hr
50 mg PO DAILY
Discontinued
losartan 100 mg Tablet
100 mg PO DAILY
Discharge Orders:
Discharge Patient (As Directed); Ordered 09/10/24
Ordered By: Prisca Sparks
Discharge Date and Time
Discharge Date/Time: 09/10/24 14:19
Print Language: SPANISH
[2024-09-11 08:51] LABS: Myeloperoxidase Antibody 0 AU/mL (0-19); Serine Protease-3, IgG 0 AU/mL (0-19)
[2024-09-11 20:15] LABS: ANA, IgG Reflex to HEp-2 Detected (None Detected)
[2024-09-12 23:54] LABS: ANA, HEp-2, IgG <1:80 (<1:80)
== END 2024-09-10 14:19 | disposition home or self-care (01) | DRG 683 ==
LOC: 4 EAST ACU 10:47
PROVIDERS: Emergency Medicine; Physician Assistant; ADMITTING PHYSICIAN Internal Medicine; CONSULT PHYSICIAN Specialist; EMERGENCY PHYSICIAN Emergency Medicine; FAMILY PHYSICIAN Physician Assistant Medical
DX: N17.9 Acute kidney failure, unspecified (principal); E87.20 Acidosis, unspecified; N20.1 Calculus of ureter; E83.42 Hypomagnesemia; I10 Essential (primary) hypertension; E78.00 Pure hypercholesterolemia, unspecified; F10.90 Alcohol use, unspecified, uncomplicated; Z85.3 Personal history of malignant neoplasm of breast; Z79.899 Other long term (current) drug therapy; Z90.49 Acquired absence of other specified parts of digestive tract
CPT/HCPCS: 74176; 80048; 80053; 81003; 81015; 81099; 82248; 82550; 82570; 83516; 83690; 83735; 84156; 84300; 85025; 85027; 86038; 86039; 86063; 86160; 86803; 87040; 87086; 96361; 96374; 96375; 99285

== ENCOUNTER → 2024-09-24 09:00 | Outpatient (REF) | payer OTHER, SELFPAY | LOC: RAD 09:00 | PROVIDERS: ATTENDING PHYSICIAN Physician Assistant Medical | DX: R93.89 Abnormal findings on diagnostic imaging of other specified body structures (principal) | CPT/HCPCS: 78803; A9503 ==

== ENCOUNTER → 2025-02-10 11:46 | Outpatient (REF) | payer OTHER, SELFPAY | LOC: PAVMRI 11:46 | PROVIDERS: ATTENDING PHYSICIAN Physician Assistant Medical | DX: R94.8 Abnormal results of function studies of other organs and systems (principal); M89.9 Disorder of bone, unspecified | CPT/HCPCS: 72157; 72158; A9575 ==

== ENCOUNTER → 2025-04-20 13:35 | Outpatient (REF) | payer OTHER, SELFPAY | LOC: RAD 13:35 | PROVIDERS: ATTENDING PHYSICIAN Specialist; FAMILY PHYSICIAN Nurse Practitioner Adult Health | DX: I10 Essential (primary) hypertension (principal); E78.5 Hyperlipidemia, unspecified; E78.2 Mixed hyperlipidemia | CPT/HCPCS: 76770 ==